=== PATIENT | male | born 1990 | race Caucasian/White ===

== ENCOUNTER → 2019-02-04 | Outpatient (CLI) | payer MEDICAID ==
[2019-02-04 12:44] LABS: ABSOLUTE EOSINOPHILS # (AUTO) 0.1 10^3/uL (0.0-0.6); ABSOLUTE LYMPHOCYTES (AUTO) 1.6 10^3/uL (0.5-4.7); ABSOLUTE MONOCYTES (AUTO) 0.9 10^3/uL (0.1-1.4); ABSOLUTE NEUT (AUTO) 4.5 10^3/uL (1.7-8.2); BASOPHILS % (AUTO) 0.4 % (0-2); EOSINOPHILS % (AUTO) 0.7 % (0-6); HEMOGLOBIN 16.1 g/dL (13.5-17.0); LYMPHOCYTES % (AUTO) 22.4 % (13-45); MEAN CORPUSCULAR HEMOGLOBIN 30.4 pg (27.0-33.4); MEAN CORPUSCULAR HGB CONC 34.3 g/dL (32.0-36.0); MEAN CORPUSCULAR VOLUME 89 fl (80-97); MONOCYTES % (AUTO) 13.2 % (3-13); PLATELET COUNT 234 10^3/uL (150-450); RED CELL DISTRIBUTION WIDTH 13.2 % (11.5-14.0); SEGMENTED NEUTROPHILS % (AUTO) 63.3 % (42-78); TOTAL CELLS COUNTED % (AUTO) 100 %; WHITE BLOOD COUNT 7.1 10^3/uL (4.0-10.5)
[2019-02-04 13:07] LABS: ALBUMIN 4.7 g/dL (3.5-5.0); ALKALINE PHOSPHATASE 45 U/L (38-126); ANION GAP 10 (5-19); ASPARTATE AMINO TRANSFERASE 25 U/L (17-59); BILIRUBIN,DIRECT 0.1 mg/dL (0.0-0.4); BILIRUBIN,TOTAL 0.5 mg/dL (0.2-1.3); BLOOD UREA NITROGEN 12 mg/dL (7-20); CALCIUM 9.7 mg/dL (8.4-10.2); CARBON DIOXIDE 30 mmol/L (22-30); CHLORIDE 100 mmol/L (98-107); GLUCOSE 82 mg/dL (75-110); POTASSIUM 4.4 mmol/L (3.6-5.0); TOTAL PROTEIN 7.7 g/dL (6.3-8.2); TRIGLYCERIDES 401 mg/dL (<150)
[2019-02-04 13:14] LABS: CHOLESTEROL 336.85 mg/dL (0-200)
[2019-02-04 13:18] LABS: DIRECT LDL 147 mg/dL (<100)
== END ==
LOC: OD 11:31
PROVIDERS: ATTEND Nurse Practitioner Psychiatric/Mental Health
DX: F31.32 Bipolar disorder, current episode depressed, moderate (principal); Z79.899 Other long term (current) drug therapy
CPT/HCPCS: 36415; 80053; 80061; 80156; 83036; 84443; 85025